=== PATIENT | female | born 1965 | race Two or more races ===

== ENCOUNTER 2022-09-25 20:56 | Emergency (ER) | payer OTHER ==
[~2022-09-25] VITALS: Ht 170.2 cm; Wt 62.1 kg
[2022-09-28] MEDS ORDERED: NEXTERONE PO (18:25)
[2022-09-28] MEDS ORDERED: SYNTHROID75 MCG PO (18:26)
== END 2022-09-25 23:30 | disposition left against medical advice (07) ==
LOC: ER 20:56
DX: Z53.21 Procedure and treatment not carried out due to patient leaving prior to being seen by health care provider (principal); R30.0 Dysuria; Z88.2 Allergy status to sulfonamides

== ENCOUNTER → 2022-09-28 | Emergency (ER) | payer OTHER ==
[~2022-09-28] VITALS: Ht 170.2 cm; Wt 62.1 kg
[~2022-09-28] MED LIST: NEXTERONE PO; SYNTHROID75 MCG PO
== END | disposition home or self-care (01) ==
LOC: ER 18:19 → EDBD 18:23 → ER 18:23
DX: R42 Dizziness and giddiness (principal)

== ENCOUNTER 2022-12-05 21:39 | Emergency (ER) | payer OTHER ==
[~2022-12-05] VITALS: Ht 170.2 cm; Wt 62.1 kg
== END 2022-12-06 00:07 | disposition home or self-care (01) ==
LOC: ER 21:39
DX: U07.1 COVID-19 (principal)